=== PATIENT | male | born 2005 | race Caucasian/White ===

== ENCOUNTER 2023-10-20 20:35 | Emergency (ER) | payer OTHER, SELFPAY ==
[2023-10-20 20:50] VITALS: BP 150/85
[2023-10-20 21:35] VITALS: BMI 27.9
--- NOTE | 2023-10-20 21:52 | ED.GENMED ---
History of Present Illness
General
Chief Complaint: Musculo-Skeletal Complaint
Source: patient
Time Seen by Provider: 10/20/23 21:44
Travel History
Have you had any contact with someone who has COVID-19?: No
Do you have any symptoms of coronavirus? Fever > 100 degrees, chills, cough, shortness of breath, sore throat, loss of taste or smell, muscle aches, or headache?: No
History of Present Illness
History of Present Illness:
18-year-old male with no significant past medical history presented emergency department for evaluation after his right hand got caught underneath a dresser that fell causing injury to the right ring and little finger. Abrasion/contusion noted to
the fingers. Patient states while both fingers are painful he notes more pain to the right ring finger with limited range of motion. Patient is right-hand dominant. No other injuries were sustained. He believes his tetanus vaccine is up-to-date.
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
Past History
Past History
ED Past Medical History: None
ED Past Surgical History: None
Social History
Tobacco: Non-smoker
Alcohol: None
Drug: None
Personal: Single
Living: with family
Employment: Employed
Review of Systems
Review of Systems
All Other Systems: ROS reviewed and negative except as documented in HPI and ROS
Phy Exam
Physical Exam
Physical Exam:
GENERAL: Alert , in no apparent distress
EYE: conjunctiva clear
Head: Normocephalic atraumatic
NECK: Supple,
ENT: mmm.
LUNGS: no acute respiratory distress
NEUROLOGICAL: Alert and oriented
SKIN: Warm and dry, skin intact.
MUSCULOSKELETAL: Right hand: Soft tissue swelling, contusion and superficial abrasion noted to the right ring finger. Tenderness over the proximal portion of the middle phalanx to the right ring finger. Limited range of motion to the ring finger
at the PIP secondary to pain. Sensation grossly intact to light touch throughout all digits. Extremities otherwise warm and well-perfused. No other signs of trauma.
PSYCH: Normal and appropriate interaction.
Scores
Heart Failure Risk
Heart Failure Risk Score: Not Applicable
Heart Score for Chest Pain Patients
STEMI patient?: Not applicable
Withdrawal Assessment of Alcohol
Withdrawal Assessment Completed?: Not applicable
Course
Orders/Labs/Results
Orders:
Orders
10/20/23 20:55
Hand, Right 3 View [CR Hand - Right Min 3 Views] Urgent
Comment: Ring and 5th finger
Reason For Exam: crushing injury right hand
10/20/23 21:51
Aluminium Finger Splint Right ONCE
10/20/23 21:52
Ibuprofen [Motrin] 600 mg PO NOW STA
Vital Signs
Initial and Last Documented VS:
Initial Vital Signs
Temp Pulse Resp BP Pulse Ox
98.3 F 79 20 150/85 99
10/20/23 20:50 10/20/23 20:50 10/20/23 20:50 10/20/23 20:50 10/20/23 20:50
Last Documented Vital Signs
Temp Pulse Resp BP Pulse Ox
98.3 F 79 20 150/85 99
10/20/23 20:50 10/20/23 20:50 10/20/23 20:50 10/20/23 20:50 10/20/23 20:50
MDM/Problems Addressed
Differential Diagnosis Includes:
Contusion, abrasion, fracture
MDM/Problems Addressed:
18-year-old male presented emergency department for evaluation following a right hand injury earlier this morning. Patient notes that he tried to wait out the pain and swelling but due to the limited range of motion decided for further evaluation.
X-ray of the right hand was ordered from triage which shows a fracture to the right ring finger middle phalanx. Abrasion was irrigated with normal saline. A aluminum finger splint was applied for immobilization. Due to the location of the
laceration combined with patient's job I provided him with information for orthopedic follow-up. Advised to call them tomorrow morning for an appointment. Motrin/Tylenol as needed for pain. Patient is otherwise stable for discharge home.
*Radiology
Radiology exam reviewed: preliminary read by ED provider (Nondisplaced fracture middle phalanx right ring finger)
*Pulse Oximetry
Patient hypoxic: no
*Critical Care Note
Total Time (30-74mins, 75-104mins- exclusive of procedures): Not Applicable
ED Attending Note
-
Portions of this chart may have been created with voice recognition software.� Occasional wrong word or��sound alike� substitutions may have occurred due to the inherent limitations of voice recognition software.
Discharge Plan
Departure
Patient Disposition: Home (Routine Discharge)
Date of Disposition: 10/20/23
Time of Disposition: 21:52
Patient with high blood pressure during this ER visit?: Yes
Discharge Problem:
Closed fracture of middle phalanx of right ring finger, Contusion of right little finger
Instructions: Finger Fracture (DC)
Prescriptions:
No Action
ibuprofen 800 MG tablet
800 mg PO QIDPRN PRN (Reason: pain, fever. Take with food.) Qty: 30 0RF
Referrals:
Berto De Jesus MD [Active] - (Hand Surgeon)
Interventions
Interventions:
*Risk Screen - Suicide Last Done: 10/20/23 20:50
*General Assessment Last Done: 10/20/23 20:50
*Neglect/Abuse Screening Last Done: 10/20/23 20:50
ED- Fall Risk Assessment Last Done: 10/20/23 20:50
*ED COVID-19 Vaccine History Last Done: 10/20/23 20:50
*Nursing Disposition Last Done: 10/20/23 22:13
ED-Musculoskeletal Assessment Last Done: 10/20/23 21:35
ED-Skin Assessment Last Done: 10/20/23 21:35
Discharge Date and Time
Discharge Date/Time: 10/20/23 22:14
Print Language: ESTONIAN
[2023-10-20] MEDS: MOTRIN 600 MG PO (22:07)
== END 2023-10-20 22:14 | disposition home or self-care (01) ==
LOC: EMR 20:35
PROVIDERS: EMERGENCY PHYSICIAN Emergency Medicine
DX: S60.051A Contusion of right little finger without damage to nail, initial encounter (principal); S62.624A Displaced fracture of middle phalanx of right ring finger, initial encounter for closed fracture; W23.0XXA Caught, crushed, jammed, or pinched between moving objects, initial encounter; R03.0 Elevated blood-pressure reading, without diagnosis of hypertension
CPT/HCPCS: 99283; 29130; 73130